=== PATIENT | male | born 1975 | race Caucasian/White ===

== ENCOUNTER → 2018-08-25 | Outpatient (CLI) | payer BC ==
--- NOTE | 2018-08-25 15:18 | US ---
EXAMINATION TYPE: US scrotum with doppler. Grayscale and color Doppler Duplex imaging performed of t he scrotum. DATE OF EXAM: 08/25/2018 COMPARISON: NONE CLINICAL HISTORY: N50.8 Other specified disorders of male genital. Left teste pain, hx of left hydroc zayra with repair. Right scrotum appears larger than left. EXAM MEASUREMENTS: TESTICLES: Right Testicle: 4.2 x 3.2 x 3.0 cm Left Testicle: 4.1 x 3.1 x 2.4 cm EPIDIDYMIS HEAD: Right Epididymis: 1.0 x 1.1 x 0.9 cm Left Epididymis: 0.7 x 1.4 x 0.9 cm Doppler performed to assess for testicular vascularity; good bilateral color flow and waveforms are s een. There is no evidence of testicular torsion. Presence of hydroceles: right Presence of varicoceles: no IMPRESSION: 1. Right hydrocele
== END | disposition home or self-care (01) ==
LOC: RADUSWWP 14:28
PROVIDERS: ATTEND Urology
DX: N43.3 Hydrocele, unspecified (principal); N50.812 Left testicular pain
CPT/HCPCS: 76870; 93975

== ENCOUNTER → 2021-02-08 | Outpatient (CLI) | payer BC ==
--- NOTE | 2021-02-08 11:45 | US ---
EXAMINATION TYPE: US abdomen complete DATE OF EXAM: 02/08/2021 COMPARISON: NONE CLINICAL HISTORY: K21.9 gerd without esophagitis. Patient stated has abdominal pinching pain with danielle n/pressure left of umbilicus. EXAM MEASUREMENTS: Liver Length: 11.5 cm Gallbladder Wall: 0.2 cm CBD: 0.3 cm Spleen: 10.6 cm Right Kidney: 10.6 x 4.9 x 3.7 cm Left Kidney: 10.6 x 5.9 x 4.7 cm Pancreas: limitedly seen due to overlying bowel gas Liver: mildly heterogeneous appearance with periportal wall brightness Gallbladder: wnl Evidence for sonographic Black's sign: no CBD: wnl Spleen: wnl Right Kidney: No hydronephrosis or masses seen Left Kidney: No hydronephrosis or masses seen Upper IVC: wnl Abd Aorta: wnl The intrahepatic portion of the IVC and proximal abdominal aorta are within normal limits. There i s no evidence of cholelithiasis. Common bile duct is unremarkable. The visualized portions of the p ancreas are homogenous. The spleen is unremarkable. Kidneys are symmetric and free of hydronephrosi s. No renal lesions are seen. IMPRESSION: Mild hepatic steatosis suggested otherwise unremarkable study.
== END | disposition home or self-care (01) ==
LOC: RADUSWWP 10:21
PROVIDERS: ATTEND Internal Medicine
DX: K76.89 Other specified diseases of liver (principal)
CPT/HCPCS: 76700

== ENCOUNTER → 2021-04-09 | Outpatient (CLI) | payer BC ==
--- NOTE | 2021-04-09 19:30 | US ---
CLINICAL HISTORY: R59.0 ENLARGED LYMPHNODE IN NECK XAMINATION TYPE: US thyroid st tissue head/neck DATE OF EXAM: 04/09/2021 COMPARISON: NONE CLINICAL HISTORY: R59.0 ENLARGED LYMPHNODE IN NECK. Enlarged lymph node in neck. Scanned area of patient's concern/palpable area posterior neck slightly left of midline. Hypoechoic area with hyperechoic center seen measuring 1.0 x 0.6 x 0.3 cm. IMPRESSION: No definite discrete abnormality to correlate with patient's palpable abnormality. Contr ast-enhanced neck CT or possibly MRI with overlying marker could be performed for additional evaluati on. Limited exam.
== END | disposition home or self-care (01) ==
LOC: RADUSWWP 16:57
PROVIDERS: ATTEND Internal Medicine
DX: R59.0 Localized enlarged lymph nodes (principal)
CPT/HCPCS: 76536